=== PATIENT | female | born 1970 ===

== ENCOUNTER 2020-10-28 16:48 | Inpatient (IN) | payer MEDICAID ==
[~2020-10-28] VITALS: Ht 162.6 cm; Wt 75.0 kg
[2020-10-28] MEDS ORDERED: POLYETHYLENE GLYCOL 17 GM PACKET PO PRN (17:30)
[2020-10-28] MEDS ORDERED: ACETAMINOPHEN 325 MG TABLET PO PRN (17:30)
[2020-10-28] MEDS ORDERED: ONDANSETRON ODT 4 MG PO PRN (17:30)
[2020-10-28] MEDS ORDERED: BISACODYL 10 MG SUPP PR PRN (17:30)
[2020-10-28 21:00] VITALS: BP 155/91
[2020-10-28] MEDS: PLEASE ENTER ALLERGIES MC SCH (21:00)
[2020-10-28 21:07] VITALS: BP 155/91
[2020-10-28] MEDS: LORazepam 1MG TABLET PO SCH (22:36)
[2020-10-29] MEDS: LORazepam 1MG TABLET PO SCH ×4 (03:34→20:57)
[2020-10-29] MEDS: PLEASE ENTER ALLERGIES MC SCH (05:00)
[2020-10-29 06:29] LABS: CHOL/HDL RATIO 2.4; FREE T4 (FREE THYROXINE) 0.7 ng/dL (0.76-1.46); LDL/HDL RATIO 1.3 (0.5-3.0)
[2020-10-29 07:39] VITALS: BP 126/84
[2020-10-29] MEDS: THIAMINE 100MG TABLET PO SCH (08:27)
[2020-10-29] MEDS: FOLIC ACID 1 MG TABLET PO SCH (08:27)
[2020-10-29] MEDS: BUPRENORPHINE/NALOXONE 8-2MG SL SCH (11:06)
[2020-10-29] MEDS: SERTRALINE 50MG TABLET PO SCH (11:06)
[2020-10-29] MEDS ORDERED: BUPR1FIL3 TD (12:37)
[2020-10-29] MEDS ORDERED: FLUO40CA2 PO (12:41)
[2020-10-29] MEDS ORDERED: QUET50TA5 PO (12:41)
[2020-10-29] MEDS ORDERED: HYDR-826 PO (12:41)
[2020-10-29] MEDS ORDERED: RIVA20TA PO (12:41)
[2020-10-29] MEDS ORDERED: LISI-170 PO (12:41)
[2020-10-29] MEDS ORDERED: AMIT100T PO (12:42)
[2020-10-29] MEDS: LORazepam 1MG TABLET PO PRN (16:23)
[2020-10-29 16:30] LABS: MICROSCOPIC NOT IND
[2020-10-29 16:40] LABS: AMPHETAMINE SCREEN, URINE Negative (Negative); BARBITURATE SCREEN, URINE Negative (Negative); BENZODIAZEPINE SCREEN, URINE Positive (Negative); CANNABINOID SCREEN, URINE Negative (Negative); COCAINE SCREEN, URINE Negative (Negative); METHADONE SCREEN, URINE Negative (Negative); OPIATE SCREEN, URINE Negative (Negative)
[2020-10-29 19:34] LABS: ALANINE AMINOTRANSFERASE 45 U/L (12-78); ALBUMIN 3.7 g/dL (3.4-5.0); ANION GAP 7 mmol/L (5-15); CALCIUM 9.4 mg/dL (8.5-10.1); CHLORIDE 105 mmol/L (98-107); CREATININE 0.71 mg/dL (0.55-1.02)
[2020-10-29 19:36] LABS: ALKALINE PHOSPHATASE 95 U/L (45-117); BILIRUBIN,TOTAL 0.7 mg/dL (0.2-1.0); TOTAL PROTEIN 7.3 g/dL (6.4-8.2)
[2020-10-29 19:47] VITALS: BP 124/60
[2020-10-29] MEDS: QUETIAPINE 25MG TABLET PO SCH (20:57)
[2020-10-29] MEDS: LACTULOSE 20 GM/30 ML UDC PO SCH (20:57)
[2020-10-29] MEDS ORDERED: AMITRIPTYLINE 50 MG TABLET PO SCH (21:00)
[2020-10-29] MEDS ORDERED: BUPRENORPHINE HCL/NALOXONE 8-2MG FILM SL SCH (21:00)
[2020-10-30] MEDS: LORazepam 1MG TABLET PO SCH ×2 (03:16→08:08)
[2020-10-30] MEDS: LORazepam 1MG TABLET PO PRN (06:03)
[2020-10-30 07:34] VITALS: BP 123/85
[2020-10-30] MEDS: FOLIC ACID 1 MG TABLET PO SCH (08:07)
[2020-10-30] MEDS: RIVAROXABAN 20 MG TABLET PO SCH (08:07)
[2020-10-30] MEDS: THIAMINE 100MG TABLET PO SCH (08:07)
[2020-10-30] MEDS: SERTRALINE 50MG TABLET PO SCH (08:07)
[2020-10-30] MEDS: BUPRENORPHINE/NALOXONE 8-2MG SL SCH (08:07)
[2020-10-30] MEDS: LISINOPRIL 20 MG TABLET PO SCH (08:08)
[2020-10-30] MEDS: LACTULOSE 20 GM/30 ML UDC PO SCH ×3 (08:08→20:07)
[2020-10-30 18:34] VITALS: BP 137/92
[2020-10-30] MEDS: QUETIAPINE 25MG TABLET PO SCH (20:02)
[2020-10-30] MEDS: AMITRIPTYLINE 50 MG TABLET PO SCH (20:02)
[2020-10-31 07:10] VITALS: BP 119/87
[2020-10-31] MEDS: FOLIC ACID 1 MG TABLET PO SCH (08:18)
[2020-10-31] MEDS: BUPRENORPHINE/NALOXONE 8-2MG SL SCH ×2 (08:18→21:01)
[2020-10-31] MEDS: THIAMINE 100MG TABLET PO SCH (08:19)
[2020-10-31] MEDS: SERTRALINE 50MG TABLET PO SCH (08:19)
[2020-10-31] MEDS: LISINOPRIL 20 MG TABLET PO SCH (08:19)
[2020-10-31] MEDS: RIVAROXABAN 20 MG TABLET PO SCH (08:19)
[2020-10-31] MEDS: LACTULOSE 20 GM/30 ML UDC PO SCH (08:45)
[2020-10-31] MEDS ORDERED: ACAMPROSATE 333 MG TABLET.DR ONE (14:43)
[2020-10-31] MEDS: ACAMPROSATE 333 MG TABLET.DR PO SCH ×2 (14:48→21:01)
[2020-10-31] MEDS: QUETIAPINE 25MG TABLET PO SCH (21:01)
[2020-10-31] MEDS: AMITRIPTYLINE 50 MG TABLET PO SCH (21:01)
[2020-11-01 07:31] VITALS: BP 109/77
[2020-11-01] MEDS: THIAMINE 100MG TABLET PO SCH (08:29)
[2020-11-01] MEDS: RIVAROXABAN 20 MG TABLET PO SCH (08:29)
[2020-11-01] MEDS: SERTRALINE 50MG TABLET PO SCH (08:30)
[2020-11-01] MEDS: ACAMPROSATE 333 MG TABLET.DR PO SCH ×3 (08:30→20:32)
[2020-11-01] MEDS: FOLIC ACID 1 MG TABLET PO SCH (08:30)
[2020-11-01] MEDS: LISINOPRIL 20 MG TABLET PO SCH (08:30)
[2020-11-01] MEDS: BUPRENORPHINE/NALOXONE 8-2MG SL SCH ×2 (08:30→20:30)
[2020-11-01 19:23] VITALS: BP 121/78
[2020-11-01] MEDS: AMITRIPTYLINE 50 MG TABLET PO SCH (20:30)
[2020-11-01] MEDS: QUETIAPINE 25MG TABLET PO SCH (20:30)
[2020-11-02 07:15] VITALS: BP 116/82
[2020-11-02] MEDS: SERTRALINE 50MG TABLET PO SCH (08:46)
[2020-11-02] MEDS: FOLIC ACID 1 MG TABLET PO SCH (08:46)
[2020-11-02] MEDS: THIAMINE 100MG TABLET PO SCH (08:46)
[2020-11-02] MEDS: LISINOPRIL 20 MG TABLET PO SCH (08:46)
[2020-11-02] MEDS: RIVAROXABAN 20 MG TABLET PO SCH (08:46)
[2020-11-02] MEDS: BUPRENORPHINE/NALOXONE 8-2MG SL SCH (08:46)
[2020-11-02] MEDS: ACAMPROSATE 333 MG TABLET.DR PO SCH (08:47)
[2020-11-02] MEDS ORDERED: SERT50TA28 PO (10:15)
[2020-11-02] MEDS ORDERED: ACAM333T7 PO (10:15)
[2020-11-02] MEDS ORDERED: QUET25TA7 PO (10:15)
== END 2020-11-02 12:15 | disposition home or self-care (01) | DRG 753 ==
LOC: 3E 20:47
PROVIDERS: ADMIT Psychiatry & Neurology Psychosomatic Medicine; ATTEND Psychiatry & Neurology Psychosomatic Medicine
DX: F31.30 Bipolar disorder, current episode depressed, mild or moderate severity, unspecified (principal); D68.69 Other thrombophilia; E72.20 Disorder of urea cycle metabolism, unspecified; F11.20 Opioid dependence, uncomplicated; I48.91 Unspecified atrial fibrillation; R45.851 Suicidal ideations; F10.239 Alcohol dependence with withdrawal, unspecified; F41.9 Anxiety disorder, unspecified; I10 Essential (primary) hypertension; Z79.899 Other long term (current) drug therapy; Z56.0 Unemployment, unspecified; Y90.8 Blood alcohol level of 240 mg/100 ml or more; Z87.891 Personal history of nicotine dependence; Z81.8 Family history of other mental and behavioral disorders
CPT/HCPCS: J0574 ×5; 36415; 71045; 80053; 80061; 80307; 81003; 82140; 82607; 84439; 84443; 93005

== ENCOUNTER 2021-01-21 04:13 | Emergency (ER) | payer MEDICAID ==
[~2021-01-21] VITALS: Ht 163.8 cm; Wt 75.2 kg
[~2021-01-21 04:13] MED LIST: ACAM333T7 PO; AMIT100T PO; BUPR1FIL3 TD; FLUO40CA2 PO; HYDR-826 PO; LISI-170 PO; QUET25TA7 PO; QUET50TA5 PO; RIVA20TA PO; SERT50TA28 PO
[2021-01-21] MEDS ORDERED: LORazepam 1MG TABLET PO ONE (04:30)
[2021-01-21] MEDS ORDERED: OLANZAPINE 10 MG TABLET PO ONE (04:30)
[2021-01-21] MEDS ORDERED: LORazepam 1MG TABLET ONE (04:31)
[2021-01-21] MEDS ORDERED: OLANZAPINE 10 MG TABLET ONE (04:31)
[2021-01-21 04:42] VITALS: BP 137/93
--- NOTE | 2021-01-21 04:54 | NUR ---
patient very anxious upon arrival to ER room
== END 2021-01-21 04:58 | disposition home or self-care (01) ==
LOC: ED 04:30
DX: F41.1 Generalized anxiety disorder (principal); K08.89 Other specified disorders of teeth and supporting structures
CPT/HCPCS: 99283